=== PATIENT | male | born 1975 | race Caucasian/White ===

== ENCOUNTER 2020-03-05 19:45 | Emergency (ER) | payer MEDICAID ==
--- NOTE | 2020-03-05 20:03 | EDM.PDOC ---
ED HPI GENERAL MEDICAL PROBLEM - General Chief Complaint: General Stated Complaint: Left flank pain Time Seen by Provider: 03/05/20 20:03 Source of Information: Reports: Patient History Limitations: Reports: No Limitations - History of Present Illness INITIAL COMMENTS - FREE TEXT/NARRATIVE: Experiencing 3-4 days of left flank pain. History of renal stenting with nerve ablation procedure. Has had flareups since his surgery, is a chronic stone former but does not feel this event is stone related. Also noted he had a fa with mild contusion although no significant findings appearing from that. Normally follows with [facility] in [place] but secondary of CoVid 19, restrictions was advised to seek treatment at the nearest emergency department. Negative for any exposures or risk factors for current pandemic. Onset Date: 03/04/20 Location: Reports: Abdomen, Back Quality: Reports: Ache, Sharp Severity: Severe Improves with: Reports: None Worsens with: Reports: None Context: Reports: Activity Left Flank Pain Score (Numeric/FACES): 10 - Related Data Allergies Allergy/AdvReac Type Severity Reaction Status Date / Time morphine Allergy Itching Verified 07/21/17 19:07 [email or web address] Allergy Itching Uncoded 07/21/17 19:08 Home Meds: Home Meds Aspirin [Halfprin] 81 mg PO QAM 03/05/20 [History] hydroCHLOROthiazide [Hydrochlorothiazide] 25 mg PO QPM 03/05/20 [History] Past Medical History - Past Health History Medical/Surgical History: Denies Medical/Surgical History Genitourinary History: Reports: Renal Calculus Other Genitourinary History: 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 ED EXAM, GENERAL - Physical Exam Exam: See Below General Appearance: Alert, WD/WN, No Apparent Distress Ears: Normal External Exam, Normal Canal, Hearing Grossly Normal, Normal TMs Nose: Normal Inspection, Normal Mucosa, No Blood Throat/Mouth: Normal Inspection, Normal Lips, Normal Teeth, Normal Gums, Normal Oropharynx, Normal Voice, No Airway Compromise Head: Atraumatic, Normocephalic Neck: Normal Inspection, Supple, Non-Tender, Full Range of Motion Respiratory/Chest: No Respiratory Distress, Lungs Clear, Normal Breath Sounds, No Accessory Muscle Use, Chest Non-Tender Cardiovascular: Normal Peripheral Pulses, Regular Rate, Rhythm, No Edema, No Gallop, No JVD, No Murmur, No Rub GI/Abdominal: Normal Bowel Sounds, Soft, Tender, Other (Tenderness to the left flank radiating to the left lateral abdominal wall.) (Male) Exam: Deferred Rectal (Males) Exam: Deferred Back Exam: Normal Inspection, Full Range of Motion, NT Extremities: Normal Inspection, Normal Range of Motion, Non-Tender, Normal Capillary Refill, No Pedal Edema Neurological: Alert, Oriented, CN II-XII Intact, Normal Cognition, Normal Gait, Normal Reflexes, No Motor/Sensory Deficits Psychiatric: Normal Affect, Normal Mood Skin Exam: Warm, Dry, Intact, Normal Color, No Rash Lymphatic: No Adenopathy Course - Vital Signs Last Recorded V/S: Last Vital Signs Temp 37.3 C 03/05/20 20:00 Pulse 115 H 03/05/20 20:00 Resp 26 H 03/05/20 20:00 BP 159/111 H 03/05/20 20:00 Pulse Ox 97 03/05/20 20:00 - Orders/Labs/Meds Orders: Active Orders 24 hr Category Date Time Status Peripheral IV Care [RC] . DIRECTED Care 03/05/20 20:11 Active Abdomen Pelvis wo Cont [CT] Stat Exams 03/05/20 20:13 Ordered Sodium Chloride 0.9% [Saline Flush] Med 03/05/20 20:11 Active 10 ml FLUSH Q8HR PRN Peripheral IV Insertion Adult [OM.PC] Stat Oth 03/05/20 20:11 Ordered Medication Orders Sodium Chloride (Saline Flush) 10 ml FLUSH Q8HR PRN PRN Reason: keep vein open Last Admin: 03/05/20 20:47 Dose: 10 ml Labs: Laboratory Tests 03/05/20 03/05/20 03/05/20 Range/Units 20:20 20:22 20:22 WBC 6.29 (5.00-10.00) 10^3/uL RBC 4.49 L (4.50-6.00) 10^6/uL Hgb 15.5 (13.0-17.0) g/dL Hct 42.3 (40.0-52.0) % MCV 94.2 H (82.0-92.0) fL MCH 34.5 H (27.0-31.0) pg MCHC 36.6 H (32.0-36.0) g/dL RDW 11.0 L (11.5-14.5) % Plt Count 202 (150-400) 10^3/uL MPV 10.1 (7.4-10.4) fL Immature Gran % (Auto) 0.2 (0.0-5.0) % Neut % (Auto) 49.8 L (50.0-70.0) % Lymph % (Auto) 39.9 (20.0-40.0) % [place] % (Auto) 8.6 H (2.0-8.0) % Eos % (Auto) 1.0 (1.0-3.0) % Baso % (Auto) 0.5 (0.0-1.0) % Immature Gran # (Auto) 0.01 (0.00-0.50) 10^3/uL Neut # (Auto) 3.14 (2.50-7.00) 10^3/uL Lymph # (Auto) 2.51 (1.00-4.00) 10^3/uL [place] # (Auto) 0.54 (0.10-0.80) 10^3/uL Eos # (Auto) 0.06 L (0.10-0.30) 10^3/uL Baso # (Auto) 0.03 (0.00-0.10) 10^3/uL Sodium 142 (136-145) mmol/L Potassium 3.6 (3.3-5.3) mmol/L Chloride 103 (98-115) mmol/L Carbon Dioxide 28.9 (21.0-32.0) mmol/L Anion Gap 13.7 (5-15) mmol/L BUN 14 (6-25) mg/dL Creatinine 0.92 (0.51-1.17) mg/dL Est Cr Clr Drug Dosing TNP Estimated GFR (MDRD) > 60 mL/min Glucose 115 H (75 - 99) mg/dL Calcium 9.4 (8.7-10.3) mg/dL Specimen Type . Urine Color Light yellow (YELLOW) Urine Appearance Slightly cloudy H (CLEAR) Urine pH 7.0 (5.0-9.0) Ur Specific [place] 1.015 (1.005-1.030) Urine Protein Negative (NEGATIVE) mg/dL Urine Glucose (UA) Negative (NEGATIVE) mg/dL Urine Ketones Negative (NEGATIVE) mg/dL Urine Occult Blood Negative (NEGATIVE) Urine Nitrite Negative (NEGATIVE) Urine Bilirubin Negative (NEGATIVE) Urine Urobilinogen 0.2 (0.2-1.0) E.U./dL Ur Leukocyte Esterase Negative (NEGATIVE) Meds: Medications Generic Name Dose Route Start Last Admin Trade Name Freq PRN Reason Stop Dose Admin Sodium Chloride 10 ml 03/05/20 20:11 03/05/20 20:47 Saline Flush FLUSH 10 ml Q8HR PRN Administration keep vein open Discontinued Medications Generic Name Dose Route Start Last Admin Trade Name Freq PRN Reason Stop Dose Admin Diphenhydramine HCl 25 mg 03/05/20 21:11 03/05/20 21:25 Benadryl IVPUSH 03/05/20 21:12 25 mg ONETIME ONE Administration Hydromorphone HCl 1 mg 03/05/20 21:10 03/05/20 21:18 Dilaudid IVPUSH 03/05/20 21:11 1 mg Q1H ONE Administration Hydromorphone HCl 1 mg 03/05/20 21:44 03/05/20 21:46 Dilaudid IVPUSH 03/05/20 21:45 1 mg ONETIME ONE Administration Ketorolac Tromethamine 30 mg 03/05/20 20:11 03/05/20 20:37 Toradol IM 03/05/20 20:12 30 mg ONETIME ONE Administration Ketorolac Tromethamine 30 mg 03/05/20 20:12 03/05/20 20:43 Toradol IVPUSH 03/05/20 20:13 30 mg ONETIME ONE Administration Departure - Departure Time of Disposition: 21:46 Disposition: Home, Self-Care 01 Condition: Good Clinical Impression: Renal colic, Kidney stone - Discharge Information *PRESCRIPTION DRUG MONITORING PROGRAM REVIEWED*: Yes *COPY OF PRESCRIPTION DRUG MONITORING REPORT IN PATIENT TIMOTHY: Yes Referrals: Emma Boothe NP [Primary Care Provider] - Forms: ED Department Discharge Additional Instructions: Home and rest. Take your regular medications as directed Make sure you have adequate fluid intake. Contact your urologist Dr. Yannick lambert to update on status. Advise of CT performed this evening. Contact [facility] to advise them of this incident. Sepsis Event Note - Focused Exam Vital Signs: Vital Signs Temp Pulse Resp BP Pulse Ox 03/05/20 20:00 37.3 C 115 H 26 H 159/111 H 97 Date Exam was Performed: 03/05/20 Time Exam was Performed: 22:52 - Problem List & Annotations (1) History of stent insertion of renal artery SNOMED Code(s): 614557919 Code(s): Z98.890 - OTHER SPECIFIED POSTPROCEDURAL STATES Status: Acute Priority: Medium (2) HTN, Essential hypertension SNOMED Code(s): 03888162 Code(s): I10 - ESSENTIAL (PRIMARY) HYPERTENSION Status: Chronic Priority : Medium (3) Flank pain, chronic SNOMED Code(s): 736180598 Code(s): R10.9 - UNSPECIFIED ABDOMINAL PAIN; G89.29 - OTHER CHRONIC PAIN Status: Chronic Priority: Medium - Problem List Review Problem List Initiated/Reviewed/Updated: Yes - My Orders Last 24 Hours: My Active Orders 03/05/20 20:11 Peripheral IV Care [RC] . DIRECTED Sodium Chloride 0.9% [Saline Flush] 10 ml FLUSH Q8HR PRN Peripheral IV Insertion Adult [OM.PC] Stat 03/05/20 20:13 Abdomen Pelvis wo Cont [CT] Stat - Assessment/Plan Last 24 Hours: My Active Orders 03/05/20 20:11 Peripheral IV Care [RC] . DIRECTED Sodium Chloride 0.9% [Saline Flush] 10 ml FLUSH Q8HR PRN Peripheral IV Insertion Adult [OM.PC] Stat 03/05/20 20:13 Abdomen Pelvis wo Cont [CT] Stat Plan: Home and rest. Take your regular medications as directed Make sure you have adequate fluid intake. Contact your urologist Dr. Yannick lambert to update on status. Advise of CT performed this evening. Contact [facility] to advise them of this incident.
[2020-03-05] MEDS: Ketorolac 30 MG/ML SDV IM ONE (20:37)
[2020-03-05] MEDS: Ketorolac 30 MG/ML SDV IVPUSH ONE (20:43)
[2020-03-05] MEDS: Sodium Chloride 0.9% 10 ML Syringe FLUSH PRN (20:47)
[2020-03-05 20:49] LABS: ANION GAP 13.7 mmol/L (5-15); CHLORIDE,CL 103 mmol/L (98-115); SODIUM,NA 142 mmol/L (136-145)
[2020-03-05] MEDS: HYDROmorphone 1 MG/ML Syringe IVPUSH ONE ×2 (21:18→21:46)
[2020-03-05] MEDS: diphenhydrAMINE 50 MG/ML SDV IVPUSH ONE (21:25)
[2020-03-06 02:12] VITALS: BP 161/94; PULSE 88
--- NOTE | 2020-03-06 07:44 | CT ---
[id number] CT/CT Abdomen Pelvis WO IV Exam: CT Abdomen Pelvis WO IV Clinical Data: RENAL COLIC PREVIOUS URETERAL STENTING KIDNEY STONES COMPARISON: NO PREVIOUS SIMILAR EXAM IS AVAILABLE FINDINGS: A left renal artery stent is seen There is minimal right-sided nephrolithiasis There is no hydronephrosis There is no radiopaque calculus of either ureter There are some limitations of the exam without IV contrast The liver and spleen, aorta, adrenals, gallbladder, and pancreas otherwise show no acute abnormalities The pelvis shows no mass or adenopathy There is no evidence of appendicitis IMPRESSION: NO ACUTE PROCESS CURRENTLY Agusto Theodore MD 03/06/20 0743 Thank you for allowing us to participate in the care of your patient.
== END 2020-03-05 22:00 | disposition home or self-care (01) ==
LOC: KA.ED 19:45
DX: N20.0 Calculus of kidney (principal); Z88.5 Allergy status to narcotic agent; Z88.6 Allergy status to analgesic agent
CPT/HCPCS: 36415; 74176; 80048; 81003; 85025; 96372; 96374; 96375; 99284-25; J1170; J1200; J1885